=== PATIENT | male | born 1935 | race Caucasian/White ===

== ENCOUNTER 2016-12-09 09:52 | Day surgery (SDC) | payer MEDICARE, OTHER ==
[2016-12-09] MEDS ORDERED: Lactated Ringers 1,000 ML IV SCH (10:45)
[2016-12-09] MEDS ORDERED: Propofol 200 MG/20 ML SDV IV ONE (11:45)
[2016-12-09] MEDS ORDERED: fentaNYL 100 MCG/2 ML SDV IV ONE (11:45)
[2016-12-09] MEDS ORDERED: Midazolam 1 MG/ML 2 ML SDV IV ONE (11:45)
[2016-12-09] MEDS ORDERED: Lidocaine 2% 100 MG/5 ML Syringe IVPUSH ONE (11:45)
[2016-12-09] MEDS ORDERED: Ondansetron 4 MG/2 ML SDV IVPUSH ONE (11:45)
[2016-12-09] MEDS ORDERED: Bupivacaine 0.5%/EPINEPHrine 1:200,000 50 ML MDV INJECT ONE (11:58)
[2016-12-09] MEDS ORDERED: Lidocaine 1% 20 ML MDV INJECT ONE (11:58)
--- NOTE | 2016-12-09 12:37 | PCM.OPNOTE ---
- General Post-Op/Procedure Note Date of Surgery/Procedure: 12/09/16 Operative Procedure(s): exicisonal bx with frozen section of sqcca of left forearm and basal cell ca of left arm Findings: AK at margins on frozen no SQCCa left arm lesion sent for permanent. Pre Op Diagnosis: sqcca of left forearm. bcca of left arm Post-Op Diagnosis: Same Anesthesia Technique: Local (1 ml 1 % lido with epi/0.5% buvipicaine), MAC Primary Surgeon: Remy Mckeon Anesthesia Provider: Camelia Fernandez Pathology: left arm and forearm Complications: None Condition: Good Free Text/Narrative:: see dictation.
--- NOTE | 2016-12-09 14:00 | OR ---
DATE OF OPERATION: 12/09/2016 SURGEON: Remy Mckeon MD PROCEDURE PERFORMED: Excisional biopsy with frozen section of left forearm lesion and excisional biopsy of left arm lesion. 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 INDICATIONS FOR PROCEDURE: This is an 81-year-old, white male, who underwent a recent excisional biopsy of the lesions on his left forearm and his left arm. Pathology was positive for margins for basal cell in the left arm, and on the left forearm. He had actinic keratoses with squamous cell carcinoma. He was offered and accepted re-excision of both these lesions with frozen section of the left forearm lesion. DESCRIPTION OF OPERATION: After an excellent IV sedation was administered, a 1:1 mixture of 1% lidocaine with epinephrine 0.5% bupivacaine was used to infiltrate the area around the previous left arm biopsy. An elliptical excision was carried out and the specimen was passed off the field after making an incision with a #15 scalpel blade and removing it the underlying tissue with electrocautery. The margins were marked with the medial and lateral margins. The wound was closed by approximating initially with stay sutures of 2-0 silk and then using a combination of interrupted simple and vertical mattress sutures of 3-0 nylon. Attention was then turned to the left arm where more local was infiltrated around the previous biopsy site, and an elliptical incision was then made. Specimen had its margins marked after excising it with a #15 scalpel blade and electrocautery. The wound was approximated with a running 3-0 nylon. After a verbal report that our margins were clear for any cancer in his left forearm, dressings were applied. The patient was taken back to recovery room in good condition having tolerated the procedure well. A total of 11 mL of our local mixture was used. /[id number] /MODL
[2016-12-09 14:27] VITALS: BP 123/71
== END 2016-12-09 13:33 | disposition home or self-care (01) ==
LOC: FB.SDS 09:52
PROVIDERS: ATTEND Surgery
DX: C44.619 Basal cell carcinoma of skin of left upper limb, including shoulder (principal); L57.0 Actinic keratosis; E11.9 Type 2 diabetes mellitus without complications; N40.1 Benign prostatic hyperplasia with lower urinary tract symptoms; Z88.1 Allergy status to other antibiotic agents; Z88.2 Allergy status to sulfonamides; Z88.8 Allergy status to other drugs, medicaments and biological substances; Z79.82 Long term (current) use of aspirin; Z79.899 Other long term (current) drug therapy; Z98.890 Other specified postprocedural states
CPT/HCPCS: 00400; 11406; 11606; 82962; 88305; 88331; 88332; J2250; J2405; J2704; J3010; J7120

== ENCOUNTER 2018-01-13 07:41 | Emergency (ER) | payer MEDICARE, OTHER ==
--- NOTE | 2018-01-13 08:16 | EDM.PDOC ---
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 Pt had similar symptoms last week at his left arm. Now, the patient feels being in his usual state of health. No N/V/D no Dizziness no pain. BP 154/77 RR 18 Pulse ox 96% on RA Temp 36.8 Pulse 58 Onset Date: 01/13/18 Onset Time: 06:00 Duration: Hour(s): Location: Reports: Chest Quality: Reports: Ache, Dull Severity: Moderate Improves with: Reports: Rest Worsens with: Reports: Movement Associated Symptoms: Reports: Diaphoresis (VALVE MECHANIC, resolved now) Treatments VALVE MECHANIC: Reports: Aspirin (325 mg) left arm radiating to the side of the left chest Pain Score (Numeric/FACES): 7 - Related Data Allergies Allergy/AdvReac Type Severity Reaction Status Date / Time Sulfa (Sulfonamide Allergy Rash Verified 01/13/18 09:13 Antibiotics) cephalexin AdvReac Stomach Verified 01/13/18 09:13 Upset diclofenac [Diclofenac] AdvReac Stomach Verified 01/13/18 09:13 Upset glipizide AdvReac Diarrhea Unverified 01/13/18 09:13 metformin AdvReac Diarrhea Unverified 01/13/18 09:13 Home Meds: Home Meds Cholecalciferol (Vitamin D3) [Vitamin D3] 1,000 unit PO DAILY 04/24/14 [History] Multivitamin [Multivitamins] 1 each PO DAILY 04/24/14 [History] Triamcinolone Acetonide [Kenalog 0.1% Crm] 15 gm TOP BID PRN 04/24/14 [History] cycloSPORINE [Restasis] 1 each EYEBOTH BID 04/24/14 [History] Glimepiride [Amaryl] 4 mg PO DAILY 12/08/16 [History] Aspirin [Ecotrin] 650 mg PO DAILY 01/13/18 [History] Past Medical History HEENT History: Reports: Sinusitis Other HEENT History: POLYP OF NASAL CAVITIY, ACUTE SINUSITIS Cardiovascular History: Reports: None Respiratory History: Reports: None Other Genitourinary History: SCREENING FOR MALIGNANT NEOPLASM OF PROSTATE, OTHER ABNORMAL URINATION,MICROSCOPIC HEMATURIA,HYPERTROPHY OF PROSTATE W/ URINARY OBSTRUCTION AND OTHER LOWER UTI 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 Other Musculoskeletal History: PAIN IN JOINT,SHOULDER REGION, Neurological History: Reports: None Psychiatric History: Reports: None Endocrine/Metabolic History: Reports: Diabetes, Type II Hematologic History: Reports: Anticoagulation Therapy Immunologic History: Reports: None Oncologic (Cancer) History: Reports: None Other Dermatologic History: SQUAMOUS CELL CARCINOMA - Past Surgical History Head Surgeries/Procedures: Reports: None HEENT Surgical History: Reports: Naso-Sinus Surgery GI Surgical History: Reports: Colonoscopy, Hernia, Inguinal Social & Family History - Caffeine Use Caffeine Use: Reports: Coffee ED ROS GENERAL - Review of Systems Review Of Systems: See Below Constitutional: Reports: No Symptoms HEENT: Reports: No Symptoms Respiratory: Reports: No Symptoms Cardiovascular: Reports: No Symptoms Endocrine: Reports: No Symptoms GI/Abdominal: Reports: No Symptoms : Reports: No Symptoms Musculoskeletal: Reports: No Symptoms Skin: Reports: Other (H/O skin CA) Neurological: Reports: No Symptoms Psychiatric: Reports: No Symptoms Hematologic/Lymphatic: Reports: No Symptoms Immunologic: Reports: No Symptoms ED EXAM, GENERAL - Physical Exam Exam: See Below Exam Limited By: No Limitations General Appearance: Alert, WD/WN, No Apparent Distress Eye Exam: Bilateral Eye: Normal Inspection Ears: Normal External Exam Ear Exam: Bilateral Ear: Auricle Normal Nose: Normal Inspection Throat/Mouth: Normal Inspection, Normal Lips, Normal Gums, Normal Oropharynx, Normal Voice, No Airway Compromise Head: Atraumatic, Normocephalic Neck: Normal Inspection, Supple Respiratory/Chest: No Respiratory Distress, Lungs Clear, Normal Breath Sounds, No Accessory Muscle Use, Chest Non-Tender Cardiovascular: Normal Peripheral Pulses, Regular Rate, Rhythm, No Edema, No Gallop, No JVD, No Murmur, No Rub GI/Abdominal: Normal Bowel Sounds, Soft, Non-Tender, No Organomegaly, No Distention, No Abnormal Bruit, No Mass (Male) Exam: Deferred Rectal (Males) Exam: Deferred Back Exam: Normal Inspection, Full Range of Motion Extremities: Normal Inspection, Normal Range of Motion, Non-Tender, No Pedal Edema Neurological: Alert, Oriented, CN II-XII Intact, Normal Cognition, Normal Gait, Normal Reflexes, No Motor/Sensory Deficits Psychiatric: Normal Affect, Normal Mood Skin Exam: Warm, Dry, Intact, Normal Color, No Rash Lymphatic: No Adenopathy EKG INTERPRETATION EKG Date: 01/13/18 Time: 07:55 Rhythm: NSR Rate (Beats/Min): 54 [place]: Normal P-Wave: Present QRS: Normal ST-T: Normal QT: Normal Comparison: NA - No Prior EKG Course - Vital Signs Text/Narrative:: 82 y.o.w.m with a h/o NIDDM, H/O skin CA, came to the ed left sided CP at 6 am with diaphoresis, 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 Pt had similar symptoms last week at his left arm. Now, the patient feels being in his usual state of health. No N/V/D no Dizziness no pain. BP 154/77 RR 18 Pulse ox 96% on RA Temp 36.8 Pulse 58 PE: WNWD W M in NAD Imaging: CXR NAD Labs: CBC, BMP nl GFR 53 Na 140 K 3.8 BUN 20 Cr 1.3 Trop 0.017 D Dimer 0.53 Impression: Chest pain, resolved 9.08 am consultation: Dr. Poole, Advertising Vice President, [facility]: Pt can be treated as an outpatient Rexam: Pt remained CP free in the ed, No meds were given in the ed Plan: D/C with instructions Last Recorded V/S: Last Vital Signs Temp 36.6 C 01/13/18 09:21 Pulse 57 L 01/13/18 09:21 Resp 15 01/13/18 09:21 BP 152/70 H 01/13/18 09:21 Pulse Ox 100 01/13/18 09:21 - Orders/Labs/Meds Orders: Active Orders 24 hr Category Date Time Status CXR [Chest 1V Frontal] [CR] Stat Exams 01/13/18 08:10 Taken EKG 12 Lead [EK] Routine Ther 01/13/18 07:55 Ordered Labs: Laboratory Tests 01/13/18 01/13/18 01/13/18 Range/Units 08:10 08:10 08:10 WBC 4.0 L (4.5-12.0) X10-3/uL RBC 4.61 (4.30-5.75) x10(6)uL Hgb 13.9 (11.5-15.5) g/dL Hct 41.4 (30.0-51.3) % MCV 89.7 (80-96) fL MCH 30.1 (27.7-33.6) pg MCHC 33.6 (32.2-35.4) g/dL RDW 13.4 (11.5-15.5) % Plt Count 112 L (125-369) X10(3)uL MPV 10.4 (7.4-10.4) fL Neut % (Auto) 52.6 (46-82) % Lymph % (Auto) 26.0 (13-37) % [place] % (Auto) 10.3 (4-12) % Eos % (Auto) 10 H (1.0-5.0) % Baso % (Auto) 1 (0-2) % Neut # (Auto) 2.1 (1.6-8.3) # Lymph # (Auto) 1.0 (0.6-5.0) # [place] # (Auto) 0.4 (0.0-1.3) # Eos # (Auto) 0.4 (0.0-0.8) # Baso # (Auto) 0.1 (0.0-0.2) # PT 10.2 (8.7-11.1) INR 1.05 (0.89-1.13) D-Dimer, Quantitative 0.58 (0.0-0.59) mg/LFEU Sodium (135-145) mmol/L Potassium (3.5-5.3) mmol/L Chloride (100-110) mmol/L Carbon Dioxide (21-32) mmol/L BUN (7-18) mg/dL Creatinine (0.70-1.30) mg/dL Est Cr Clr Drug Dosing mL/min Estimated GFR (MDRD) (>60) BUN/Creatinine Ratio (9-20) Glucose (80-116) mg/dL Calcium (8.6-10.2) mg/dL Troponin I (<0.017-0.056) ng/mL 01/13/18 01/13/18 Range/Units 08:10 08:10 WBC (4.5-12.0) X10-3/uL RBC (4.30-5.75) x10(6)uL Hgb (11.5-15.5) g/dL Hct (30.0-51.3) % MCV (80-96) fL MCH (27.7-33.6) pg MCHC (32.2-35.4) g/dL RDW (11.5-15.5) % Plt Count (125-369) X10(3)uL MPV (7.4-10.4) fL Neut % (Auto) (46-82) % Lymph % (Auto) (13-37) % [place] % (Auto) (4-12) % Eos % (Auto) (1.0-5.0) % Baso % (Auto) (0-2) % Neut # (Auto) (1.6-8.3) # Lymph # (Auto) (0.6-5.0) # [place] # (Auto) (0.0-1.3) # Eos # (Auto) (0.0-0.8) # Baso # (Auto) (0.0-0.2) # PT (8.7-11.1) INR (0.89-1.13) D-Dimer, Quantitative (0.0-0.59) mg/LFEU Sodium 138 (135-145) mmol/L Potassium 4.3 (3.5-5.3) mmol/L Chloride 103 (100-110) mmol/L Carbon Dioxide 30 (21-32) mmol/L BUN 20 H (7-18) mg/dL Creatinine 1.3 (0.70-1.30) mg/dL Est Cr Clr Drug Dosing 40.19 mL/min Estimated GFR (MDRD) 53 L (>60) BUN/Creatinine Ratio 15.4 (9-20) Glucose 153 H (80-116) mg/dL Calcium 8.5 L (8.6-10.2) mg/dL Troponin I < 0.017 L (<0.017-0.056) ng/mL Departure - Departure Time of Disposition: 09:20 Disposition: Home, Self-Care 01 Condition: Good Clinical Impression: Chest pain at rest Instructions: Angina Pectoris, Peoe-sm-Skof Referrals: Isabella Perry PA [Primary Care Provider] - Forms: ED Department Discharge Additional Instructions: Please f/u wiyth your PMD/Advertising Vice President in next 3 days, please come back the ED if your symptoms get worse acutely. - My Orders Last 24 Hours: My Active Orders 01/13/18 07:55 EKG 12 Lead [EK] Routine 01/13/18 08:10 CXR [Chest 1V Frontal] [CR] Stat - Assessment/Plan Last 24 Hours: My Active Orders 01/13/18 07:55 EKG 12 Lead [EK] Routine 01/13/18 08:10 CXR [Chest 1V Frontal] [CR] Stat
[2018-01-13 09:22] VITALS: BP 152/70
--- NOTE | 2018-01-13 11:21 | CR ---
INDICATION: Chest pain. CHEST: An AP upright portable view of the chest was obtained 01/13/2018. The heart did not appear enlarged, allowing for the AP positioning. The aorta is mildly tortuous with minimal calcification suggested in the arch. Overlying EKG leads are noted. A definite active infiltrate or effusion was not identified. IMPRESSION: No acute process. MTDD
== END 2018-01-13 09:25 | disposition home or self-care (01) ==
LOC: FB.ED 07:41
DX: R07.9 Chest pain, unspecified (principal); Z79.82 Long term (current) use of aspirin; Z88.1 Allergy status to other antibiotic agents; Z88.8 Allergy status to other drugs, medicaments and biological substances; Z79.899 Other long term (current) drug therapy; Z88.2 Allergy status to sulfonamides; E11.9 Type 2 diabetes mellitus without complications
CPT/HCPCS: 36415; 71045; 80048; 84484; 85025; 85379; 85610; 93005; 99284

== ENCOUNTER 2022-02-03 17:01 | Emergency (ER) | payer MEDICARE, OTHER ==
[2022-02-03 17:30] VITALS: BP 150/74; PULSE 75
[2022-02-03] MEDS ORDERED: Diphtheria,Pertussis(Acell),Tetanus Vaccine 0.5 ML Syringe IM ONE (19:06)
== END 2022-02-03 19:10 ==
LOC: EDBD → MERGE 17:01 → FB.ED 17:01
DX: S01.81XA Laceration without foreign body of other part of head, initial encounter (principal); Z23 Encounter for immunization; W18.09XA Striking against other object with subsequent fall, initial encounter; Y92.129 Unspecified place in nursing home as the place of occurrence of the external cause
CPT/HCPCS: 70450; 90471; 90715; 99283-25

== ENCOUNTER 2022-10-01 07:52 | Emergency (ER) | payer MEDICARE, OTHER ==
[2022-10-01] MEDS ORDERED: traMADol 50 MG Tab PO ONE (08:10)
[2022-10-01] MEDS ORDERED: Acetaminophen 500 MG Tab PO ONE (08:10)
[2022-10-01 09:55] VITALS: BP 101/53; PULSE 68
== END 2022-10-01 09:48 ==
LOC: FB.ED 07:52
DX: S42.201A Unspecified fracture of upper end of right humerus, initial encounter for closed fracture (principal); S52.501A Unspecified fracture of the lower end of right radius, initial encounter for closed fracture; E11.9 Type 2 diabetes mellitus without complications; Z86.73 Personal history of transient ischemic attack (TIA), and cerebral infarction without residual deficits; Z88.2 Allergy status to sulfonamides; Z88.1 Allergy status to other antibiotic agents; Z88.8 Allergy status to other drugs, medicaments and biological substances; Z79.82 Long term (current) use of aspirin; W19.XXXA Unspecified fall, initial encounter
CPT/HCPCS: 73030-RT; 73080-RT; 73110-RT; 99284; A9270-GY